=== PATIENT | male | born 1980 | race Caucasian/White ===

== ENCOUNTER → 2017-10-20 | Outpatient (CLI) | payer MEDICARE, OTHER ==
--- NOTE | 2017-10-20 14:32 | XR ---
EXAMINATION TYPE: XR Hip Complete RT DATE OF EXAM: 10/20/2017 CLINICAL HISTORY: Right hip pain. TECHNIQUE: AP and frogleg views of the right hip are obtained. COMPARISON: Right femur x-ray August 25, 2011 FINDINGS: There is no acute fracture/dislocation evident in the right hip. The joint space in the r ight hip appears within normal limits. The overlying soft tissue appears unremarkable. IMPRESSION: Unremarkable study.
--- NOTE | 2017-10-20 14:44 | XR ---
Lumbosacral spine HISTORY: Leg numbness, low back pain 5 views of the lumbosacral spine Correlation to prior exam 06/25/2015 There is no significant interval change. Mild lumbar spondylosis. Loss of disc height again noted L5- S1. There is some straightening of the lumbar curvature. There may be a slight dextroscoliosis center ed at L3. IMPRESSION: Stable exam. There are findings compatible with degenerative disc disease.
== END | disposition home or self-care (01) ==
LOC: RADXRMAIN 13:58
PROVIDERS: ATTEND Internal Medicine
DX: M25.551 Pain in right hip (principal); R20.0 Anesthesia of skin
CPT/HCPCS: 72110; 73502

== ENCOUNTER 2017-10-21 21:30 | Emergency (ER) | payer MEDICARE, OTHER ==
[2017-10-21 21:45] VITALS: RESP 18
[2017-10-21] MEDS ORDERED: predniSONE 20 MG TAB PO STA (22:27)
[2017-10-21] MEDS ORDERED: KETOROLAC 60 MG/2 ML VIAL IM STA (22:27)
[2017-10-21] MEDS ORDERED: ORPHENADRINE 30 MG/ML 2 ML VIAL IM STA (22:27)
--- NOTE | 2017-10-21 23:00 | ED ---
Back Pain HPI - General Chief Complaint: Back Pain/Injury Stated Complaint: Back Pain Time Seen by Provider: 10/21/17 22:03 Source: patient Limitations: no limitations - History of Present Illness Initial Comments: This patient is 37-year-old man who presents with right low back pain and radiation of the pain to his right leg. He does describe a radicular distribution down the posterior leg to the foot. The patient states it started 2 nights ago when he was on his porch having cigarette he states that he reached for something and then had some back pain. The patient attempted to be seen here yesterday but states the wait was too long, so he did go and see a clinic doctor who took x-rays and told him that they looked fine. Patient did not have trauma to the back. He has not had any change in bowel or bladder function. No saddle anesthesia. No leg weakness. MD Complaint: back pain -: days(s) Similar Symptoms Previously: No Place: home Radiation: right leg Severity: moderate Quality: burning, aching Consistency: constant Improves With: none Worsens With: sitting upright Context: turning/twisting Associated Symptoms: denies other symptoms - Related Data Home Medications Medication Instructions Recorded Confirmed Benazepril [Lotensin] 10 mg PO DAILY 10/21/17 10/21/17 HYDROcodone/APAP 10-325MG [[place] 1 tab PO Q6HR PRN 10/21/17 10/21/17 10-325] Propranolol [Inderal] 40 mg PO DAILY 10/21/17 10/21/17 amLODIPine [Norvasc] 5 mg PO DAILY 10/21/17 10/21/17 Previous Rx's Medication Instructions Recorded Methocarbamol [Robaxin-750] 750 mg PO TID PRN #30 tablet 10/21/17 predniSONE 60 mg PO DAILY #30 tab 10/21/17 Allergies Allergy/AdvReac Type Severity Reaction Status Date / Time No Known Allergies Allergy Verified 10/21/17 22:23 Review of Systems ROS Statement: Those systems with pertinent positive or pertinent negative responses have been documented in the HPI. ROS Other: All systems not noted in ROS Statement are negative. Constitutional: Denies: fever, chills Respiratory: Denies: cough, dyspnea Cardiovascular: Denies: chest pain, palpitations, edema Gastrointestinal: Denies: abdominal pain, vomiting, diarrhea Genitourinary: Denies: dysuria, hematuria Musculoskeletal: Reports: as per HPI, back pain Skin: Denies: rash Neurological: Reports: as per HPI, paresthesias. Denies: weakness, numbness 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 ABLATION), BACK PAIN, SEIZURE 1997 History of Any Multi-Drug Resistant Organisms: None Reported Past Surgical History: Cholecystectomy, Hernia Repair, Orthopedic Surgery Additional Past Surgical History / Comment(s): HERNIA REPAIR,HAD RECURRANT INCISONAL HERNIA X2 SX, RT ANKLE ORIF, PAIN CLINIC PROCEDURES, RADIOFREQUENCY ABLATION RT T12, L1-L2 Past Anesthesia/Blood Transfusion Reactions: No Reported Reaction Past Psychological History: ADD/ADHD, Anxiety, Depression Smoking Status: Current every day smoker Past Alcohol Use History: Occasional Past Drug Use History: Marijuana - Past Family History Father Family Medical History: Unable to Obtain Mother Family Medical History: Unable to Obtain General Exam Limitations: no limitations General appearance: alert, in no apparent distress Head exam: Present: atraumatic, normocephalic Eye exam: Present: normal appearance. Absent: scleral icterus, conjunctival injection Neck exam: Present: normal inspection Respiratory exam: Present: normal lung sounds bilaterally. Absent: respiratory distress, wheezes, rales, rhonchi, stridor Cardiovascular Exam: Present: regular rate, normal rhythm, normal heart sounds. Absent: systolic murmur, diastolic murmur, rubs, gallop GI/Abdominal exam: Present: soft. Absent: distended, tenderness, guarding, rebound, rigid, mass, pulsatile mass Extremities exam: Present: normal inspection, normal capillary refill. Absent: pedal edema, calf tenderness Back exam: Present: normal inspection, CVA tenderness (R), CVA tenderness (L). Absent: tenderness, paraspinal tenderness, vertebral tenderness Neurological exam: Present: reflexes normal. Absent: motor sensory deficit Skin exam: Present: warm, dry, intact, normal color. Absent: rash Course Vital Signs 10/21/17 21:42 Temperature 98.1 F Pulse Rate 63 Respiratory 18 Rate Blood Pressure 169/80 O2 Sat by Pulse 97 Oximetry Disposition Clinical Impression: Lumbar radiculopathy Disposition: HOME SELF-CARE Condition: Good Instructions: Acute Low Back Pain (ED) Prescriptions: Methocarbamol [Robaxin-750] 750 mg PO TID PRN #30 tablet PRN Reason: pain predniSONE 60 mg PO DAILY #30 tab Is patient prescribed a controlled substance at d/c from ED?: No Referrals: Rosie Faria MD [Primary Care Provider] - 1-2 days
[2017-10-21 23:10] VITALS: BP 140/71; PULSE 77; TEMP 98
== END 2017-10-21 23:10 | disposition home or self-care (01) ==
LOC: EC 21:30
DX: M54.16 Radiculopathy, lumbar region (principal); I10 Essential (primary) hypertension; F17.200 Nicotine dependence, unspecified, uncomplicated; Z98.890 Other specified postprocedural states; Z79.899 Other long term (current) drug therapy; X50.1XXA Overexertion from prolonged static or awkward postures, initial encounter; Y92.008 Other place in unspecified non-institutional (private) residence as the place of occurrence of the external cause; Y93.89 Activity, other specified
CPT/HCPCS: 99283; 96372 ×2; J2360; J1885; J7512

== ENCOUNTER → 2017-11-06 | Outpatient (CLI) | payer MEDICARE, OTHER ==
--- NOTE | 2017-11-06 11:41 | US ---
EXAMINATION TYPE: US liver DATE OF EXAM: 11/06/2017 COMPARISON: NONE CLINICAL HISTORY: R94.5 ABN LIVER FUNCTIONS. EXAM MEASUREMENTS: Liver Length: 15.0 cm Gallbladder Wall: Surgically absent CBD: 0.3 cm Right Kidney: 13.3 x 6.6 x 5.6 cm Pancreas: partially obscured by bowel gas, portions visualized wnl Liver: wnl Gallbladder: wnl Evidence for sonographic Lawrence's sign: no CBD: wnl Right Kidney: Upper limits of normal IMPRESSION: 1. Normal right upper quadrant ultrasound
== END | disposition home or self-care (01) ==
LOC: RADUSWWP 06:55
PROVIDERS: ATTEND Internal Medicine
DX: R94.5 Abnormal results of liver function studies (principal)
CPT/HCPCS: 76705

== ENCOUNTER 2018-02-13 11:06 | Observation (INO) | payer MEDICARE, OTHER ==
[2018-02-13] MEDS ORDERED: MORPHINE SULFATE 4 MG/ML SYRINGE IVP STA (11:41)
[2018-02-13] MEDS ORDERED: HYDROcodone/APAP 10-325MG 1 EACH TAB PO ONE (11:43)
--- NOTE | 2018-02-13 11:46 | ED ---
General Adult HPI - General Chief complaint: Weakness Stated complaint: Numbness in lower extremity Time Seen by Provider: 02/13/18 11:27 Source: patient, EMS Mode of arrival: EMS Limitations: no limitations - History of Present Illness Initial comments: 37-year-old male presenting with worsening lower extremely weakness. Patient states that he was seen and admitted to the hospital this past Thursday. He had an MRI and epidural injection done by Dr. Leone. He states while inpatient he was having lower extremity weakness. He was discharged with a walker and told to follow-up in the office as well as with PT. Patient states since his discharge she's been unable to ambulate. Has been having to use a bedside urinal. He denies any groin numbness or difficulty with bowel and bladder function. He denies any fevers or chills or worsening back pain. - Related Data Home Medications Medication Instructions Recorded Confirmed Benazepril [Lotensin] 10 mg PO DAILY 10/21/17 02/13/18 Propranolol [Inderal] 40 mg PO DAILY 10/21/17 02/13/18 amLODIPine [Norvasc] 5 mg PO DAILY 10/21/17 02/13/18 Albuterol Inhaler [Ventolin Hfa 1 - 2 puff INHALATION RT-Q6H PRN 02/13/18 Inhaler] Previous Rx's Medication Instructions Recorded Ibuprofen [Motrin] 400 mg PO Q6HR PRN #30 tab 02/11/18 Ranitidine HCl [Zantac] 150 mg PO BID #60 tab 02/11/18 Allergies Allergy/AdvReac Type Severity Reaction Status Date / Time No Known Allergies Allergy Verified 02/13/18 12:11 Review of Systems ROS Statement: Those systems with pertinent positive or pertinent negative responses have been documented in the HPI. Review of Systems Constitutional: Denies fever, chills Eyes: Denies change in vision, Denies pain Ears, nose, mouth, throat: Denies headaches, Denies sore throat Cardiovascular: Denies chest pain. Denies palpitations Respiratory: Denies shortness of breath, Denies cough Gastrointestinal: Denies abdominal pain. Denies nausea, vomiting, diarrhea. Genitourinary: Denies hematuria, Denies infections Musculoskeletal: Denies pain, Denies swelling Integumentary: Denies rash Neurological: Denies headache, lower extremity weakness, focal numbness Psychiatric: Denies anxiety, Denies depression Hematologic/Lymphatic: Denies easy bleeding or bruising ROS Other: All systems not noted in ROS Statement are negative. 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 ABLATION), BACK PAIN, SEIZURE 1997, broken finger, on chronic pain management History of Any Multi-Drug Resistant Organisms: None Reported Past Surgical History: Cholecystectomy, Hernia Repair, Orthopedic Surgery Additional Past Surgical History / Comment(s): HERNIA REPAIR,HAD RECURRANT INCISONAL HERNIA X2 SX, RT ANKLE ORIF, PAIN CLINIC PROCEDURES, RADIOFREQUENCY ABLATION RT T12, L1-L2 Past Anesthesia/Blood Transfusion Reactions: No Reported Reaction Past Psychological History: ADD/ADHD, Anxiety, Depression Smoking Status: Current every day smoker Past Alcohol Use History: Daily, Occasional Past Drug Use History: None Reported - Past Family History Father Family Medical History: Unable to Obtain Mother Family Medical History: Unable to Obtain General Exam - General Exam Comments Initial Comments: General: Awake, alert, No acute Distress HENT: Normocephalic. Atraumatic Eyes: PERRL. EOMI. No scleral icterus. No injected conjunctiva Neck: Full ROM Chest/Lungs: Clear to auscultation bilaterally. No wheezing, rhonchi, or rales Cardiac: Regular rate, rhythm. No murmurs or rubs Abdomen/GI: Soft, nontender, nondistended. No rebound, guarding, or rigidity. Musculoskeletal: 4/5 strength in bilateral lower extremity muscle groups. 2+ reflexes. L5-S1 sensation intact bilaterally. Unable to stand to ambulate Skin: Warm, dry, intact Neurologic: A/Ox3, no weakness, no sensory deficit, no coordination deficit. Unable to ambulate Limitations: no limitations Course Vital Signs 02/13/18 02/13/18 11:12 12:35 Temperature 98.2 F 97.8 F Pulse Rate 55 L 56 L Respiratory 18 18 Rate Blood Pressure 161/94 162/91 O2 Sat by Pulse 96 96 Oximetry Medical Decision Making - Medical Decision Making 37-year-old male presenting with inability to ambulate. Initial exam the patient is awake, alert, no acute distress. VSS. He has no new neurologic deficit or symptoms concerning for cauda equina syndrome. I reviewed the patient's chart and saw that he recently had an MRI and a lumbar epidural injection. He was seen by PT/OT and was ambulating with a walker inpatient. Patient is refusing to stand to ambulate stating he is unable to do so secondary to pain. I spoke with Dr. Leone states to have the patient admitted to medicine he does not feel he at this time is acute surgical candidate. I spoke with Dr. Rouse who would like the patient placed in observation under Dr. Pierce. Patient is currently stable for transfer to the floor. - Lab Data Result diagrams: 02/13/18 11:49 02/13/18 11:49 Lab Results 02/13/18 02/13/18 Range/Units 11:49 11:49 WBC 16.5 H (3.8-10.6) k/uL RBC 5.71 (4.30-5.90) m/uL Hgb 17.3 (13.0-17.5) gm/dL Hct 52.5 (39.0-53.0) % MCV 91.9 (80.0-100.0) fL MCH 30.3 (25.0-35.0) pg MCHC 33.0 (31.0-37.0) g/dL RDW 13.7 (11.5-15.5) % Plt Count 252 (150-450) k/uL Neutrophils % 62 % Lymphocytes % 29 % Monocytes % 6 % Eosinophils % 1 % Basophils % 1 % Neutrophils # 10.3 H (1.3-7.7) k/uL Lymphocytes # 4.8 (1.0-4.8) k/uL Monocytes # 0.9 (0-1.0) k/uL Eosinophils # 0.2 (0-0.7) k/uL Basophils # 0.1 (0-0.2) k/uL Sodium 140 (137-145) mmol/L Potassium 4.1 (3.5-5.1) mmol/L Chloride 107 (98-107) mmol/L Carbon Dioxide 25 (22-30) mmol/L Anion Gap 8 mmol/L BUN 19 (9-20) mg/dL Creatinine 0.77 (0.66-1.25) mg/dL Est GFR (CKD-EPI)AfAm >90 (>60 ml/min/1.73 sqM) Est GFR (CKD-EPI)NonAf >90 (>60 ml/min/1.73 sqM) Glucose 100 H (74-99) mg/dL Calcium 9.2 (8.4-10.2) mg/dL Disposition Clinical Impression: Unable to ambulate, Back pain Disposition: ADMITTED IP TO THIS [facility] Condition: Good Decision to Admit Reason: Admit from EC Decision Date: 02/13/18 Decision Time: 12:36
[2018-02-13 12:02] LABS: Basophils # (A) 0.1 k/uL (0-0.2); Basophils % (A) 1 %; Eosinophils # (A) 0.2 k/uL (0-0.7); Eosinophils % (A) 1 %; HCT 52.5 % (39.0-53.0); HGB 17.3 gm/dL (13.0-17.5); Lymphocytes # (A) 4.8 k/uL (1.0-4.8); Lymphocytes % (A) 29 %; MCH 30.3 pg (25.0-35.0); MCV 91.9 fL (80.0-100.0); Monocytes # (A) 0.9 k/uL (0-1.0); Monocytes % (A) 6 %; Neutrophils # (A) 10.3 k/uL (1.3-7.7); Neutrophils % (A) 62 %; Platelet Count 252 k/uL (150-450); RBC 5.71 m/uL (4.30-5.90); RDW 13.7 % (11.5-15.5); WBC 16.5 k/uL (3.8-10.6)
[2018-02-13 12:12] LABS: Anion Gap 8 mmol/L; Blood Urea Nitrogen 19 mg/dL (9-20); Calcium 9.2 mg/dL (8.4-10.2); Carbon Dioxide 25 mmol/L (22-30); Chloride 107 mmol/L (98-107); Glucose 100 mg/dL (74-99); Potassium 4.1 mmol/L (3.5-5.1); Sodium 140 mmol/L (137-145)
[2018-02-13] MEDS ORDERED: NALOXONE 0.4 MG/ML 1 ML VIAL IV PRN (12:37)
[2018-02-13] MEDS ORDERED: KETOROLAC 30 MG/ML 1 ML VIAL IVP PRN (12:37)
[2018-02-13 15:48] VITALS: BMI 36.6
[2018-02-13 15:50] VITALS: RESP 16
[2018-02-13] MEDS ORDERED: ACETAMINOPHEN TAB 500 MG TAB PO PRN (16:44)
[2018-02-13] MEDS ORDERED: ALPRAZolam 0.25 MG TAB PO PRN (16:44)
[2018-02-13] MEDS ORDERED: TEMAZEPAM 15 MG CAP PO PRN (16:44)
[2018-02-13] MEDS ORDERED: HYDROcodone/APAP 5-325MG 1 EACH TAB PO PRN (16:45)
[2018-02-13] MEDS ORDERED: hydrALAZINE HCL 20 MG/ML 1 ML VIAL IVP PRN (16:48)
[2018-02-13] MEDS ORDERED: cloNIDine HCL 0.1 MG TAB PO PRN (16:48)
[2018-02-13] MEDS ORDERED: SODIUM CHLORIDE 0.9% 1,000 ML IV SCH (17:00)
--- NOTE | 2018-02-13 17:36 | XR ---
EXAMINATION TYPE: XR chest 1V portable DATE OF EXAM: 02/13/2018 CLINICAL HISTORY: Difficulty breathing TECHNIQUE: Single AP portable upright view of the chest is obtained. COMPARISON: Chest radiograph 02/09/2018 FINDINGS: There is no focal air space opacity, pleural effusion, or pneumothorax seen. The cardiac silhouette size is within normal limits. The osseous structures are intact. IMPRESSION: No acute process. No significant interval change. ,
[2018-02-13 18:25] LABS: Appearance,Urine Clear (Clear); Bilirubin,Urine Negative (Negative); Blood,Urine Negative (Negative); Color,Urine Yellow; Glucose,Urine (UA) Negative (Negative); Ketones,Urine Negative (Negative); Leukocyte Esterase,Urine Negative (Negative); Nitrite,Urine Negative (Negative); PH, Urine 6.5 (5.0-8.0); Protein,Urine Negative (Negative); Specific Gravity,Urine 1.018 (1.001-1.035); Urobilinogen,Urine <2.0 mg/dL (<2.0)
[2018-02-13 18:35] LABS: Amphetamine Screen,Urine Not Detected (NotDetected); Barbiturate Screen,Urine Not Detected (NotDetected); Benzodiazepines Screen,Urine Not Detected (NotDetected); Cocaine Screen,Urine Not Detected (NotDetected); Methadone Screen, Urine Not Detected (NotDetected); Opiate Screen,Urine Not Detected (NotDetected); Oxycodone Screen, Urine Not Detected (NotDetected); Phencyclidine Screen,Urine Not Detected (NotDetected); Tricyclic Antidepressant,Urine Not Detected (NotDetected); Urn Cannabinoid Scrn Not Detected (NotDetected)
[2018-02-13] MEDS: ALBUTEROL NEBULIZED 2.5 MG/3 ML INHALATION PRN ×2 (18:51→23:21)
[2018-02-13 20:37] VITALS: BP 158/96; TEMP 97.9
--- NOTE | 2018-02-13 20:46 | HP ---
HISTORY AND PHYSICAL DATE OF SERVICE: 02/13/2018 CHIEF COMPLAINT: Bilateral leg weakness and numbness and arm weakness. HISTORY OF PRESENT ILLNESS: This 37-year-old gentleman with a past medical history of multiple medical problems including hypertension, seizure disorder, history of DJD, hernia repair, cholecystectomy, being followed by Dr. Faria in the outpatient setting, was recently admitted with bilateral leg numbness and weakness and difficulty in walking. MRA showed right-sided L5-S1 moderate disk herniation. She was seen by Dr. Leone, recommended epidural injection and the patient was given a walker. The patient went home but subsequently patient had difficulty in walking and the patient also noted some weakness of the upper limb and both lower limbs and patient came to [facility] and was admitted for further evaluation and treatment. There is no history of fever or rigors. No history of headaches, loss of consciousness or seizures at this time. A CT scan of the head and cervical spine was also done previously, which showed no active changes as well. Patient complains of urinary difficulties also. PAST MEDICAL HISTORY: History of seizure disorder, history of DJD, history of hypertension, cholecystectomy, hernia repair. MEDICATIONS: 1. Norvasc 5 mg p.o. daily. 2. Zantac 150 mg b.i.d. 3. Imdur 40 mg daily. 4. Motrin 400 mg every 6 hours p.r.n. 5. Lortab 10 mg. 6. Albuterol 2 puffs every 6 hours p.r.n. ALLERGIES: None. FAMILY HISTORY: No history of heart disease or strokes in the family. SOCIAL HISTORY: History of smoking. No alcohol. No history of substance abuse. REVIEW OF SYSTEMS: ENT: No diminished vision. CARDIOVASCULAR: No angina or palpitations. RESPIRATORY: No cough or hemoptysis. GI: No nausea. : No dysuria. NERVOUS SYSTEM: As mentioned earlier. HEMATOLOGY, IMMUNOLOGY: Asthma, hayfever. MUSCULOSKELETAL: As mentioned. HEMATOLOGY: No history of anemia. ENDOCRINE: No history of diabetes or hypothyroidism. CONSTITUTIONAL: As mentioned. DERMATOLOGY: Negative. RHEUMATOLOGY: Negative. PSYCHIATRY: As mentioned earlier. PHYSICAL EXAM: Patient is alert, oriented x3. Pulse is 56, blood pressure 160/91, respirations 18, temperature 97.8, pulse ox 98% on room air. HEENT: Conjunctivae normal. Oral mucosa moist. NECK: No jugular venous distention. No lymph node enlargement. CARDIOVASCULAR: S1 and S2 muffled. LUNGS: Breath sounds diminished at the bases. No rhonchi. No crackles. ABDOMEN: Soft, nontender. No mass palpable. LEGS: No edema. No swelling. LYMPHATICS: No lymph nodes palpable in the neck, axillae or groin. SKIN: No ulcer or rash or bleeding. NERVOUS SYSTEM: The patient has significant weakness of the proximal muscles and diffuse weakness also noted. No sensory abnormalities. Reflexes are diminished. The patient is unable to ambulate without support. LABS: WBC 16.5, sodium 140, potassium 4.1. ASSESSMENT: 1. Diffuse weakness of the upper and lower limbs, rule out polyneuropathy or Guillain [place] syndrome. 2. Possible radiculopathy, right L5-S1. 3. Increased WBC. 4. Hypertension. 5. Seizure disorder. 6. History of degenerative joint disease. 7. History of radiofrequency ablation. 8. History of cholecystectomy. 9. History of attention deficit disorder, attention deficit hyperactivity disorder. 10.Anxiety, depression. 11.History of nicotine dependence. RECOMMENDATIONS AND DISCUSSION: In this 87-year-old gentleman who presented with multiple complex medical issues, we will monitor the patient closely, continue the current management and symptomatic treatment. I recommend neuro checks and also Urology evaluation. I would also recommend PT/OT evaluation. Dr. Leone will be consulted. DVT prophylaxis. Symptomatic treatment. Resume the home medications. Monitor blood pressure closely. Increase the dose of lisinopril. Overall prognosis guarded because of multiple complex medical issues as mentioned earlier. Further recommendations to follow. I would also recommend a baseline EKG and chest x-ray also. Prognosis guarded. Further recommendations to follow. Discussed with the patient. Copy forwarded to Dr. Faria, primary care physician. MMODL / IJN: [id number] /
[2018-02-13] MEDS ORDERED: HEPARIN SODIUM,PORCINE 5,000 UNIT/ML 1 ML VIAL SQ SCH (21:00)
[2018-02-13] MEDS ORDERED: FAMOTIDINE 20 MG TAB PO SCH (21:00)
[2018-02-13] MEDS ORDERED: LISINOPRIL 10 MG TAB PO SCH (21:00)
--- NOTE | 2018-02-13 23:22 | P.CNNES ---
History of Present Illness Consult date: 02/13/18 History of Present Illness: Dr.N Marie notified of consult 8:30 PM on 02/13/18 The patient is a 37-year-old man who was recently discharged from [facility] on 02/11/2018 where he presented at that time with lumbar radicular symptoms of right leg weakness. At that time his complaint was right leg weakness and numbness and he had an MRI of the lumber spine which showed moderate disc herniation right L5-S1. At that time the patient was seen by physical therapy and given a walker. He states he walked well with a walker the day before discharge. He was evaluated by orthopedic surgery He had the epidural injection and then was discharged home but reports he became progressively weaker . He states that he was unable to get out of bed at home for the past 2 days. He states that 2 nights ago he began experiencing tingling in the hands and the following day ,on Thursday he developed numbness as well as weakness in the hands and on Thursday evening he experienced new onset of weakness in the left leg as well. Prior to this he had only experienced right leg weakness and numbness. Currently he presents with bilateral leg weakness , numbness and tingling as well as bilateral hand weakness and tingling which is new from his initial presentation He presented to the emergency room today with complaints of difficulty ambulating. Patient states that his has been helping him at home to urinate for the past 2 days by laying him on his side. He does know when he has to urinate. There has been no incontinence. He denies any fever. He has chronic diarrhea. He has chronic back problems . Review of Systems Constitutional: Denies chills, Denies fever Eyes: denies blurred vision, denies pain Cardiovascular: Denies chest pain, Denies shortness of breath Respiratory: Denies cough Musculoskeletal: Denies myalgias Neurological: Denies numbness, Denies weakness Psychiatric: Denies anxiety, Denies depression 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 ABLATION), BACK PAIN, SEIZURE 1997, broken finger, on chronic pain management History of Any Multi-Drug Resistant Organisms: None Reported Past Surgical History: Cholecystectomy, Hernia Repair, Orthopedic Surgery Additional Past Surgical History / Comment(s): HERNIA REPAIR,HAD RECURRANT INCISONAL HERNIA X2 SX, RT ANKLE ORIF, PAIN CLINIC PROCEDURES, RADIOFREQUENCY ABLATION RT T12, L1-L2 Past Anesthesia/Blood Transfusion Reactions: No Reported Reaction Past Psychological History: ADD/ADHD, Anxiety, Depression Smoking Status: Current every day smoker Past Alcohol Use History: Daily, Occasional Additional Past Alcohol Use History / Comment(s): patient states that he drinks 6 neers daily. patient states that he does go days without and alcohol and has never had issues with withdrawal Past Drug Use History: None Reported - Past Family History Father Family Medical History: Unable to Obtain Mother Family Medical History: Unable to Obtain Medications and Allergies Home Medications Medication Instructions Recorded Confirmed Type Benazepril [Lotensin] 10 mg PO DAILY 10/21/17 02/13/18 History Propranolol [Inderal] 40 mg PO DAILY 10/21/17 02/13/18 History amLODIPine [Norvasc] 5 mg PO DAILY 10/21/17 02/13/18 History Ibuprofen [Motrin] 400 mg PO Q6HR PRN #30 tab 02/11/18 02/13/18 Rx Ranitidine HCl [Zantac] 150 mg PO BID #60 tab 02/11/18 02/13/18 Rx Albuterol Inhaler [Ventolin Hfa 1 - 2 puff INHALATION RT-Q6H PRN 02/13/18 History Inhaler] Allergies Allergy/AdvReac Type Severity Reaction Status Date / Time No Known Allergies Allergy Verified 02/13/18 12:11 Physical Examination - Vital Signs Vital Signs: Vital Signs Temp Pulse Pulse Resp BP BP Pulse Ox 02/13/18 20:10 68 16 02/13/18 20:00 97.9 F 68 16 158/96 97 02/13/18 19:00 88 02/13/18 18:52 84 02/13/18 15:15 98 F 63 16 148/99 96 02/13/18 13:30 97.9 F 60 16 160/90 93 L 02/13/18 12:35 97.8 F 56 L 18 162/91 96 02/13/18 11:12 98.2 F 55 L 18 161/94 96 Intake and Output 02/13/18 02/13/18 02/13/18 06:59 14:59 22:59 Intake Total 200 222 Output Total 2150 Balance 200 -1928 Intake: Oral 200 222 Output: Urine 2150 Straight 2150 Other: Weight 122.47 kg 122.47 kg - Constitutional General appearance: obese - EENT EENT: PERRL - Respiratory Respiratory: lungs clear - Cardiovascular Cardiovascular: regular rate, normal S1, normal S2 - Integumentary Integumentary: normal - Neurologic Neurologic examination: Mental status: He was awake alert and oriented. There was no aphasia or dysarthria. Cranial nerve examination: Cranial nerves II through XII grossly intact Motor examination: Bilateral lower extremity weakness unable to lift legs off of bed. Bilateral upper extremity weakness Sensory examination: Decreased light touch both lower extremities and bilateral upper extremities DTRs: Absent bilateral upper and lower extremities Coordination and gait: Unable to check Results - Laboratory Findings CBC and BMP: 02/13/18 11:49 02/13/18 11:49 Abnormal Lab Findings: Abnormal Labs 02/13/18 02/13/18 11:49 11:49 WBC 16.5 H Neutrophils # 10.3 H Glucose 100 H Assessment and Plan (1) AIDP (acute inflammatory demyelinating polyneuropathy) Current Visit: Yes Status: Acute Code(s): G37.8 - OTH DEMYELINATING DISEASES OF CENTRAL NERVOUS SYSTEM SNOMED Code(s): 46566801 (2) Lumbar herniated disc Current Visit: No Status: Acute Code(s): M51.26 - OTHER INTERVERTEBRAL DISC DISPLACEMENT, LUMBAR REGION SNOMED Code(s): 529720302 (3) Chronic back pain Current Visit: Yes Status: Acute SNOMED Code(s): 983408119 (4) Unable to ambulate Current Visit: Yes Status: Acute Code(s): R26.2 - DIFFICULTY IN WALKING, NOT ELSEWHERE CLASSIFIED SNOMED Code(s): 803756302 Plan: The patient is a 37-year-old man who presents to the hospital with increasing weakness and numbness involving all 4 extremities. The patient was recently admitted with lumbar radicular presentation with back pain and right leg weakness and herniated disc right lumbar disc and returns to the hospital with bilateral leg weakness as well as bilateral hand weakness and numbness. His symptoms have been progressive over the last 2 days to the involvement of his upper extremities as well as his left leg. The patient's clinical presentation currently is suggestive of possible AIDP The patient will be transferred to [facility] for further management and care. Discussed at length plan with patient who is willing to transfer. Discussed patient's case with transfer team and with neurologist Dr. ESTRELLA at [facility] who is willing to accept the patient.
[2018-02-13 23:30] VITALS: PULSE 66
[2018-02-14] MEDS ORDERED: PROPRANOLOL 40 MG TAB PO SCH (09:00)
[2018-02-14] MEDS ORDERED: NICOTINE 14MG/24HR PATCH TRANSDERM SCH (09:00)
[2018-02-14] MEDS ORDERED: amLODIPine 5 MG TAB PO SCH (09:00)
[2018-02-14] MEDS ORDERED: LISINOPRIL 10 MG TAB PO SCH (09:00)
--- NOTE | 2018-02-22 23:33 | DS ---
DISCHARGE SUMMARY FINAL DIAGNOSES: 1. 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 2. Possible radiculopathy, right L5-S1. 3. Increased white count. 4. Hypertension. 5. Seizure disorder. 6. History of degenerative joint disease. 7. History of radiofrequency ablation. 8. History of cholecystectomy. 9. 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 DISCHARGE DISPOSITION: The patient will be discharged in stable condition with guarded prognosis. HISTORY OF PRESENT ILLNESS: This 37-year-old gentleman with a past medical history of multiple medical problems was admitted with diffuse weakness. Neurology saw the patient and the possibility of Guillain-Harwinton syndrome was considered. The patient was subsequently transferred to [facility] in stable condition with guarded prognosis. The prognosis remained guarded; however, the patient is stable. Please see Dr. Marie's note and multiple other notes for further information. Please also refer to the chart for current medications. MMODL / IJN: [id number] /
== END 2018-02-13 23:40 | disposition short-term general hospital (02) ==
LOC: EC 11:06 → 4SSUR 12:38
PROVIDERS: ADMIT Hospitalist; ATTEND Hospitalist
DX: G37.8 Other specified demyelinating diseases of central nervous system (principal); M51.26 Other intervertebral disc displacement, lumbar region; G89.29 Other chronic pain; M54.9 Dorsalgia, unspecified; F17.200 Nicotine dependence, unspecified, uncomplicated; F90.9 Attention-deficit hyperactivity disorder, unspecified type; F41.9 Anxiety disorder, unspecified; F32.9 Major depressive disorder, single episode, unspecified; I10 Essential (primary) hypertension; G40.909 Epilepsy, unspecified, not intractable, without status epilepticus; R19.7 Diarrhea, unspecified; R26.2 Difficulty in walking, not elsewhere classified; M46.95 Unspecified inflammatory spondylopathy, thoracolumbar region; Z79.899 Other long term (current) drug therapy; Z90.49 Acquired absence of other specified parts of digestive tract
CPT/HCPCS: 96372; 96374; 99285; 36415; 94640 ×2; 80048; 85652; 85025; 86140; 81003; 80306; 71045; G0378; J1644; J1885

== ENCOUNTER 2018-07-26 20:21 | Emergency (ER) | payer MEDICARE, OTHER ==
[2018-07-26 21:11] VITALS: RESP 18
[2018-07-26] MEDS ORDERED: ONDANSETRON 4 MG/2 ML VIAL IVP STA (21:47)
[2018-07-26] MEDS ORDERED: SODIUM CHLORIDE 0.9% 1,000 ML IV STA (21:47)
[2018-07-26 22:23] LABS: Basophils % (A) 0 %; Eosinophils # (A) 0.3 k/uL (0-0.7); Eosinophils % (A) 2 %; HCT 52.8 % (39.0-53.0); HGB 18.2 gm/dL (13.0-17.5); Lymphocytes % (A) 7 %; MCH 30.7 pg (25.0-35.0); MCHC 34.4 g/dL (31.0-37.0); MCV 89.1 fL (80.0-100.0); Mean Platelet Volume 7.8; Monocytes # (A) 0.5 k/uL (0-1.0); Monocytes % (A) 3 %; Neutrophils % (A) 86 %; Platelet Count 218 k/uL (150-450); RBC 5.92 m/uL (4.30-5.90); RDW 13.6 % (11.5-15.5); WBC 13.9 k/uL (3.8-10.6)
[2018-07-26 22:35] LABS: ALT 114 U/L (21-72); AST 42 U/L (17-59); Albumin 4.8 g/dL (3.5-5.0); Alkaline Phosphatase 105 U/L (38-126); Anion Gap 14 mmol/L; Blood Urea Nitrogen 11 mg/dL (9-20); Calcium 9.8 mg/dL (8.4-10.2); Carbon Dioxide 23 mmol/L (22-30); Chloride 105 mmol/L (98-107); Glucose 131 mg/dL (74-99); Lipase 100 U/L (23-300); Potassium 4.1 mmol/L (3.5-5.1); Sodium 142 mmol/L (137-145); Total Bilirubin 0.7 mg/dL (0.2-1.3); Total Protein 8.1 g/dL (6.3-8.2)
[2018-07-26 23:12] LABS: Appearance,Urine Clear (Clear); Bilirubin,Urine Negative (Negative); Blood,Urine Small (Negative); Color,Urine Yellow; Glucose,Urine (UA) Negative (Negative); Hyaline Casts,Urine 1 /lpf (0-2); Ketones,Urine Negative (Negative); Leukocyte Esterase,Urine Negative (Negative); Mucus,Urine Rare /hpf; Nitrite,Urine Negative (Negative); PH, Urine 6.5 (5.0-8.0); Protein,Urine Trace (Negative); RBC,Urine 3 /hpf (0-5); Squamous Epithelial Cell,Urine 1 /hpf (0-4); Urobilinogen,Urine <2.0 mg/dL (<2.0); WBC,Urine 1 /hpf (0-5)
[2018-07-26 23:15] LABS: Specific Gravity,Urine >1.050 (1.001-1.035)
--- NOTE | 2018-07-26 23:23 | CT ---
EXAM: CT Abdomen and Pelvis With Intravenous Contrast CLINICAL HISTORY: pain TECHNIQUE: Axial computed tomography images of the abdomen and pelvis with 100ml of Isovue 300, intravenous contrast. CTDI is 37.6 mGy and DLP is 1834.9 mGy-cm. This CT exam was performed using one or more of the following dose reduction techniques: automated exposure control, adjustment of the mA and/or kV according to patient size, and/or use of iterative reconstruction technique. COMPARISON: No relevant prior studies available. FINDINGS: Lung bases: Unremarkable. No mass. No consolidation. ABDOMEN: Liver: Unremarkable. No mass. Gallbladder and bile ducts: Gallbladder surgically absent. No intrahepatic ductal dilatation . Pancreas: Unremarkable. No mass. No ductal dilation. Spleen: Unremarkable. No splenomegaly. Adrenals: Unremarkable. No mass. Kidneys and ureters: Unremarkable. No solid mass. No hydronephrosis. Stomach and bowel: Unremarkable. No obstruction. No mucosal thickening. PELVIS: Appendix: The appendix is unremarkable. Bladder: Unremarkable. No mass. Reproductive: Unremarkable as visualized. ABDOMEN and PELVIS: Intraperitoneal space: Unremarkable. No free air. No significant fluid collection. Bones/joints: No acute fracture. No dislocation. Soft tissues: Unremarkable. Vasculature: Unremarkable. No abdominal aortic aneurysm. Lymph nodes: Unremarkable. No enlarged lymph nodes. IMPRESSION: No acute abnormality demonstrated in the abdomen or pelvis
[2018-07-26] MEDS ORDERED: DICYCLOMINE 10 MG CAP PO STA (23:50)
[2018-07-26] MEDS ORDERED: ONDANSETRON 4 MG ODT STARTER PACK 2 TAB BTL PO STA (23:51)
--- NOTE | 2018-07-26 23:55 | ED ---
Nausea/Vomiting/Diarrhea HPI - General Chief complaint: Nausea/Vomiting/Diarrhea Stated complaint: Vomiting, Diarrhea Time Seen by Provider: 07/26/18 21:20 Source: patient, family Mode of arrival: ambulatory - History of Present Illness Initial comments: The patient is a 38-year-old male who presents to the emergency room with complaints of nausea, vomiting and diarrhea. The symptoms were sudden onset approximately 2 hours ago. He states that last night he ate a bunch of the Easter candy. Today he ate several candy bars for breakfast. Later this evening he began to have abdominal cramping. He had a durham to the bathroom and had 3 separate episodes of nonbloody diarrhea. He states that his stools are entirely watery. He was then driving and had to car repairer pullman. He ended up having an episode of emesis within a [employer] parking lot. Afterwards he went inside and picked up some verners. States that he has been able to drink and hold down the Verners however he continues to have abdominal cramping and diarrhea. Denies any recent travel or antibiotic use. Denies any sick contacts. Admits that he possibly could have been some tainted foods. Denies any fevers or chills. No hemoptysis or hematemesis. Denies any changes in his urination to include dysuria, hematuria defective voiding. Denies any melanotic stools or hematochezia. He did not attempt to take any medications at home for symptoms. There are no other alleviating, precipitating or modifying factors - Related Data Home Medications Medication Instructions Recorded Confirmed Benazepril [Lotensin] 10 mg PO DAILY 10/21/17 07/26/18 Propranolol [Inderal] 40 mg PO DAILY 10/21/17 07/26/18 amLODIPine [Norvasc] 5 mg PO DAILY 10/21/17 07/26/18 Albuterol Inhaler [Ventolin Hfa 1 - 2 puff INHALATION RT-Q6H PRN 02/13/18 07/26/18 Inhaler] HYDROcodone/APAP 10-325MG [Dayhoit 1 tab PO QID 07/26/18 07/26/18 10-325] Previous Rx's Medication Instructions Recorded Dicyclomine [Bentyl] 10 mg PO TID PRN #15 capsule 07/26/18 Ondansetron Odt [Zofran Odt] 4 mg PO Q8HR PRN #10 tab 07/26/18 Allergies Allergy/AdvReac Type Severity Reaction Status Date / Time No Known Allergies Allergy Verified 07/26/18 21:31 Review of Systems ROS Statement: Those systems with pertinent positive or pertinent negative responses have been documented in the HPI. ROS Other: All systems not noted in ROS Statement are negative. 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), BACK PAIN, SEIZURE 1996, broken finger, on chronic pain management History of Any Multi-Drug Resistant Organisms: None Reported Past Surgical History: Cholecystectomy, Hernia Repair, Orthopedic Surgery Additional Past Surgical History / Comment(s): HERNIA REPAIR,HAD RECURRANT INCISONAL HERNIA X2 SX, PAIN CLINIC PROCEDURES, RADIOFREQUENCY ABLATION RT T12, L1-L2 Past Anesthesia/Blood Transfusion Reactions: No Reported Reaction Past Psychological History: No Psychological Hx Reported Smoking Status: Current every day smoker Past Alcohol Use History: Daily, Occasional Past Drug Use History: None Reported - Past Family History Father Family Medical History: Unable to Obtain Mother Family Medical History: Unable to Obtain General Exam General appearance: alert, in no apparent distress Head exam: Present: atraumatic, normocephalic, normal inspection Eye exam: Present: normal appearance, PERRL, EOMI. Absent: scleral icterus, conjunctival injection, periorbital swelling ENT exam: Present: normal exam, mucous membranes moist Neck exam: Present: normal inspection. Absent: tenderness, meningismus, lymphadenopathy Respiratory exam: Present: normal lung sounds bilaterally. Absent: respiratory distress, wheezes, rales, rhonchi, stridor Cardiovascular Exam: Present: regular rate, normal rhythm, normal heart sounds. Absent: systolic murmur, diastolic murmur, rubs, gallop, clicks GI/Abdominal exam: Present: soft, tenderness, normal bowel sounds, other (The patient has mild tenderness to palpation of his periumbilical region. No peritoneal signs). Absent: distended, guarding, rebound, rigid Extremities exam: Present: normal inspection, full ROM, normal capillary refill. Absent: tenderness, pedal edema, joint swelling, calf tenderness Back exam: Present: normal inspection Neurological exam: Present: alert, oriented X3, CN II-XII intact Psychiatric exam: Present: normal affect, normal mood Skin exam: Present: warm, dry, intact, normal color. Absent: rash Course Vital Signs 07/26/18 07/26/18 07/27/18 21:07 23:23 00:08 Temperature 98.4 F 99.1 F Pulse Rate 91 75 86 Respiratory 18 18 18 Rate Blood Pressure 148/88 136/82 149/86 O2 Sat by Pulse 95 97 97 Oximetry Medical Decision Making - Medical Decision Making The patient was placed into room 7. He is hooked up to continuous pulse ox and cardiac monitoring. We did obtain IV access. The patient was given 4 mg of Zofran for his nausea. I did recommend laboratory studies and a CT of the patient's abdomen and pelvis. Upon return results, I did discuss them with the patient. He has not had any episodes of vomiting while within the emergency room. He has had one episode of loose watery stool. I did discuss diagnosis, differential and treatment options. The patient does have a mild leukocytosis a t this time. His CT is negative for any acute intra-abdominal findings. At this time the patient will be discharged home. He is given a tablet of Bentyl 10 mg and a tablet of Zofran 4 mg to take home. I did additionally prescribe him these medications which were sent to his pharmacy. He is to eat a bland diet and take his prescriptions of the morning. I instructed him to increase his fluid intake. He is to follow up with his primary care physician within 2-4 days. He does need repeat laboratory studies drawn to ensure improvement in his white count. He is able to tolerate by mouth fluid intake in the emergency department. If the patient has any new or worsening symptoms he should return to the emergency department. Patient was in agreement with the treatment plan and discharged home in stable condition - Differential Diagnosis Gastroenteritis, food poisoning, IBD - Lab Data Result diagrams: 07/26/18 22:12 07/26/18 22:12 Lab Results 07/26/18 07/26/18 07/26/18 Range/Units 22:12 22:12 22:47 WBC 13.9 H (3.8-10.6) k/uL RBC 5.92 H (4.30-5.90) m/uL Hgb 18.2 H (13.0-17.5) gm/dL Hct 52.8 (39.0-53.0) % MCV 89.1 (80.0-100.0) fL MCH 30.7 (25.0-35.0) pg MCHC 34.4 (31.0-37.0) g/dL RDW 13.6 (11.5-15.5) % Plt Count 218 (150-450) k/uL Neutrophils % 86 % Lymphocytes % 7 % Monocytes % 3 % Eosinophils % 2 % Basophils % 0 % Neutrophils # 12.0 H (1.3-7.7) k/uL Lymphocytes # 1.0 (1.0-4.8) k/uL Monocytes # 0.5 (0-1.0) k/uL Eosinophils # 0.3 (0-0.7) k/uL Basophils # 0.0 (0-0.2) k/uL Sodium 142 (137-145) mmol/L Potassium 4.1 (3.5-5.1) mmol/L Chloride 105 (98-107) mmol/L Carbon Dioxide 23 (22-30) mmol/L Anion Gap 14 mmol/L BUN 11 (9-20) mg/dL Creatinine 0.67 (0.66-1.25) mg/dL Est GFR (CKD-EPI)AfAm >90 (>60 ml/min/1.73 sqM) Est GFR (CKD-EPI)NonAf >90 (>60 ml/min/1.73 sqM) Glucose 131 H (74-99) mg/dL Calcium 9.8 (8.4-10.2) mg/dL Total Bilirubin 0.7 (0.2-1.3) mg/dL AST 42 (17-59) U/L ALT 114 H (21-72) U/L Alkaline Phosphatase 105 (38-126) U/L Total Protein 8.1 (6.3-8.2) g/dL Albumin 4.8 (3.5-5.0) g/dL Lipase 100 (23-300) U/L Urine Color Yellow Urine Appearance Clear (Clear) Urine pH 6.5 (5.0-8.0) Ur Specific [place] >1.050 H (1.001-1.035) Urine Protein Trace H (Negative) Urine Glucose (UA) Negative (Negative) Urine Ketones Negative (Negative) Urine Blood Small H (Negative) Urine Nitrite Negative (Negative) Urine Bilirubin Negative (Negative) Urine Urobilinogen <2.0 (<2.0) mg/dL Ur Leukocyte Esterase Negative (Negative) Urine RBC 3 (0-5) /hpf Urine WBC 1 (0-5) /hpf Ur Squamous Epith Cells 1 (0-4) /hpf Hyaline Casts 1 (0-2) /lpf Urine Mucus Rare H (None) /hpf Disposition Clinical Impression: Nausea and vomiting Disposition: HOME SELF-CARE Condition: Stable Instructions (If sedation given, give patient instructions): Acute Nausea and Vomiting (ED) Additional Instructions: Please follow-up with your primary care doctor within 2-4 days. Return to the emergency room for any new or worsening symptoms Prescriptions: Dicyclomine [Bentyl] 10 mg PO TID PRN #15 capsule PRN Reason: diarrhea Ondansetron Odt [Zofran Odt] 4 mg PO Q8HR PRN #10 tab PRN Reason: Nausea Is patient prescribed a controlled substance at d/c from ED?: No Referrals: Rosie Faria MD [Primary Care Provider] - 1-2 days Time of Disposition: 23:54
[2018-07-27 00:09] VITALS: BP 149/86; PULSE 86; TEMP 99.1
== END 2018-07-27 00:07 | disposition home or self-care (01) ==
LOC: EC 20:21
DX: R11.2 Nausea with vomiting, unspecified (principal); D72.829 Elevated white blood cell count, unspecified; R19.7 Diarrhea, unspecified; R25.2 Cramp and spasm; I10 Essential (primary) hypertension; F17.200 Nicotine dependence, unspecified, uncomplicated; Z79.891 Long term (current) use of opiate analgesic; Z79.899 Other long term (current) drug therapy; Z87.39 Personal history of other diseases of the musculoskeletal system and connective tissue; Z90.49 Acquired absence of other specified parts of digestive tract
CPT/HCPCS: 36415; 80053; 83690; 85025; 81001; 74177; 99284; 96374; 96361 ×2; J2405; S0119; Q9967